=== PATIENT | male | born 1980 | race African-American/Black ===

== ENCOUNTER 2019-10-31 23:33 | Emergency (ER) | payer OTHER ==
[~2019-10-31] VITALS: Ht 177.8 cm; Wt 77.0 kg
[2019-10-31 23:46] VITALS: BP 124/76
== END 2019-11-01 02:41 | disposition left against medical advice (07) ==
LOC: ER 23:33
DX: Z53.21 Procedure and treatment not carried out due to patient leaving prior to being seen by health care provider (principal); R07.9 Chest pain, unspecified
CPT/HCPCS: 93005